=== PATIENT | female | born 1975 | race Caucasian/White ===

== ENCOUNTER 2023-07-26 13:33 | Outpatient (CLI) | payer OTHER ==
[~2023-07-26 13:33] MED LIST: Iopamidol 370 76% 100 ML VIAL ONE
== END 2023-07-26 13:34 | disposition home or self-care (01) ==
LOC: CT 13:33
PROVIDERS: ATTEND Internal Medicine
DX: I26.99 Other pulmonary embolism without acute cor pulmonale (principal); D68.9 Coagulation defect, unspecified; R06.02 Shortness of breath; K22.89 Other specified disease of esophagus; R91.1 Solitary pulmonary nodule
CPT/HCPCS: 71275